=== PATIENT | female | born 1965 | race Two or more races ===

== ENCOUNTER 2020-01-01 08:45 | Inpatient (IN) | payer OTHER ==
[~2020-01-01] VITALS: Ht 15.2 cm; Wt 5.0 kg
[2020-01-05] MEDS ORDERED: LASIX20 MG PO (11:33)
[2020-01-05] MEDS ORDERED: TOPROL XL50 M1 PO (11:33)
[2020-01-05] MEDS ORDERED: LOSARTAN POTASS50 MG PO (11:33)
[2020-01-05] MEDS ORDERED: XANAX0.25 MG PO (11:34)
[2020-01-07] MEDS ORDERED: METFORMIN HCL500 M4 (08:16)
[2020-01-07] MEDS ORDERED: HYDROCHLOROTH12.5 MG (08:16)
[2020-01-09] MEDS ORDERED: PERCOCET 5-3251 EACH PO (07:30)
[2020-01-09] MEDS ORDERED: ELIQUIS2.5 MG PO (07:30)
[2020-01-09] MEDS ORDERED: DUI500 PO (07:30)
== END 2020-01-09 14:53 | DRG 470 ==
LOC: SURH 01-06 06:00 → O/R 01-06 06:00 → SURH 01-06 08:45
PROVIDERS: ADMIT Orthopaedic Surgery; ATTEND Orthopaedic Surgery
PROC: 0MNP0ZZ Release Left Knee Bursa and Ligament, Open Approach (ICD-10-PCS; 2020-01-06)
PROC: 0SRD0JZ Replacement of Left Knee Joint with Synthetic Substitute, Open Approach (ICD-10-PCS; principal; 2020-01-06 09:45)
DX: M17.12 Unilateral primary osteoarthritis, left knee (principal); D62 Acute posthemorrhagic anemia; M81.0 Age-related osteoporosis without current pathological fracture; M22.12 Recurrent subluxation of patella, left knee; E66.01 Morbid (severe) obesity due to excess calories; I10 Essential (primary) hypertension